=== PATIENT | female | born 1970 | race Native Hawaiian/Other Pacific Islander ===

== ENCOUNTER 2017-06-04 14:14 | Outpatient (CLI) | payer OTHER | END 2017-06-04 15:30 | disposition home or self-care (01) | LOC: MAMMO 14:14 | DX: Z12.31 Encounter for screening mammogram for malignant neoplasm of breast (principal) ==

== ENCOUNTER 2019-01-20 13:55 | Outpatient (CLI) | payer OTHER | END 2019-01-20 19:21 | disposition home or self-care (01) | LOC: MAMMO 13:55 | DX: Z12.31 Encounter for screening mammogram for malignant neoplasm of breast (principal) ==